=== PATIENT | female | born 1955 | race Caucasian/White ===

== ENCOUNTER 2017-08-29 09:13 | Emergency (ER) | payer BC ==
--- NOTE | 2017-08-29 10:57 | ED ---
Back Pain - HPI Summary HPI Summary: Patient presents with left hip pain that started yesterday. She reports she was using her left inner leg/calf area to repeatedly catch an automatic closing door from closing multiple times. No acute pain with these motions however after she went to sit down she noticed soreness in her hip which was worse with standing after sitting for period of time. She reports she then had pain with walking and weightbearing but this did improve after walking around for a bit. She also took 400 mg of Advil which also helped. She is here today as she is concerned that the pain returned again this morning upon waking and she felt very sore and stiff getting out of bed. Pain in the left hip area radiates into the buttock hamstring and sometimes calf. She denies numbness, tingling or weakness. No previous injury to this hip however she admits she hurt her back last week. [place] pain in her left SI joint when she was bending and lifting using her back and said of her legs. She reports she nursed this along and felt great yesterday. She no longer has tenderness over her SI joint as well. She is an active lady who rides horses for hobby. Additionally she has a history of appendix and colon cancer that were treated via resection as well as chemotherapy therapy. She denies any known history of osteoporosis/penia or lytic lesions of her bone(s). No previous left hip issues to report. Denies recent use of anbx, steroids, statins. - History of Current Complaint Chief Complaint: EDExtremityLower Stated Complaint: LT HIP PAIN Time Seen by Provider: 08/29/17 10:08 Hx Obtained From: Patient, Family/Family Day Care Provider - is present w/ her today Pain Intensity: 7 - Allergies/Home Medications Allergies/Adverse Reactions: Allergies Allergy/AdvReac Type Severity Reaction Status Date / Time caffeine Allergy Tachycardia Verified 08/29/17 09:23 ciprofloxacin Allergy Numbness Verified 08/29/17 09:23 And Tingling epinephrine Allergy Tachycardia Verified 08/29/17 09:23 Sulfa (Sulfonamide Allergy Rash Verified 08/29/17 09:23 Antibiotics) ENVIRONMENT Allergy CONGESTED Uncoded 07/28/16 07:50 vasoconstrictors AdvReac Tachycardia Uncoded 07/28/16 07:50 PMH/Surg Hx/FS Hx/Imm Hx Previously Healthy: Yes Endocrine/Hematology History: Denies: Hx Anticoagulant Therapy, Hx Blood Disorders, Hx Bone Marrow Disease , Hx Diabetes, Hx Systemic Lupus Erythematosus, Hx Thyroid Disease, Hx Anemia, Autoimmune Disease Cardiovascular History: Reports: Other Cardiovascular Problems/Disorders - TACHYCARDIA Denies: Hx Hypertension Respiratory History: Reports: Hx Sleep Apnea - AFTER SURGERY IN THE PAST, NO FOLLOW UP Denies: Hx Asthma, Hx Chronic Obstructive Pulmonary Disease (COPD) GI History: Reports: Hx Gastroesophageal Reflux Disease - OCCASIONAL ACID REFLUX FROM SPICY FOODS, Hx Irritable Bowel - TENDS TO GET DIARRHEA EASILY SINCE SURGERY, Other GI Disorders - HX OF COLON CANCER X 2 WITH 2 BOWEL RESECTIONS Denies: Hx Jaundice, Hx Ulcer History: Denies: Hx Dialysis, Hx Renal Disease Musculoskeletal History: Denies: Hx Rheumatoid Arthritis Sensory History: Reports: Hx Contacts or Glasses Denies: Hx Hearing Aid Opthamlomology History: Reports: Hx Contacts or Glasses Neurological History: Reports: Hx Migraine - MIGRAINES WITH AURA-SPARKLES BEFORE EYES, Other Neuro Impairments/Disorders - PERIPHERAL NEUROPATHIES Psychiatric History: Reports: Hx Anxiety - HX OF - Cancer History Cancer Type, Location and Year: possible thyroid. appendacyle. colon Hx Chemotherapy: Yes - LAST DOSE 2010 Hx Radiation Therapy: Yes - Abdomen x 2 - Surgical History Surgery Procedure, Year, and Place: 1989 ,[facility] [place]. colon resection 2007 & 2009,. 2008 & 2010power port placement x 2,. fibroid adenoma Breast 1979, [facility]. 1985 lIpoma REMOVED FROM RIGHT leg, [facility] [place]. partial thyroidectomy Hx Anesthesia Reactions: Yes - SLEEP APNEA WITH 2009 SURGERY, HARD TO WAKE AFTER SURGERY Infectious Disease History: No Infectious Disease History: Denies: Hx Clostridium Difficile, Hx Hepatitis, Hx Human Immunodeficiency Virus (HIV), Hx of Known/Suspected MRSA, Hx Shingles, Hx Tuberculosis, Hx Known/ Suspected VRE, Hx Known/Suspected VRSA, History Other Infectious Disease, Traveled Outside the [place] in Last 30 Days - Social History Occupation: Employed Full-time - director packaging Lives: With Family Alcohol Use: Occasionally Hx Substance Use: No Substance Use Type: Reports: None Hx Tobacco Use: No Smoking Status (MU): Never Smoked Tobacco Review of Systems Constitutional: Negative Negative: Fever, Chills, Fatigue Negative: Chest Pain Negative: Shortness Of Breath Gastrointestinal: Negative Negative: Abdominal Pain Genitourinary: Negative Negative: incontinence Positive: Arthralgia, Myalgia. Negative: Decreased ROM, Edema Skin: Negative Neurological: Other - no change from baseline neuropathies Psychological: Normal All Other Systems Reviewed And Are Negative: Yes Physical Exam Triage Information Reviewed: Yes Vital Signs On Initial Exam: Initial Vitals Temp Pulse Resp BP Pulse Ox 98.0 F 78 16 132/72 99 08/29/17 09:17 08/29/17 09:17 08/29/17 09:17 08/29/17 09:17 08/29/17 09:17 Vital Signs Reviewed: Yes Appearance: Positive: Well-Appearing, No Pain Distress - at rest, seated in pike position on stretcher, Well-Nourished Skin: Positive: Warm, Skin Color Reflects Adequate Perfusion, Dry - no erythema , no ecchymosis, no lesions over effected area Head/Face: Positive: Normal Head/Face Inspection Eyes: Positive: EOMI ENT: Positive: Hearing grossly normal Respiratory/Lung Sounds: Positive: Breath Sounds Present Cardiovascular: Positive: Pulses are Symmetrical in both Upper and Lower Extremities. Negative: Leg Edema Left - (-) Shaun's, Leg Edema Right Abdomen Description: Positive: Nontender, Soft Musculoskeletal: Positive: Strength/ROM Intact - adduction and abduction of hip while lying are non-painful (pt reports no pain/improved pain w/ abduction); (+ ) pain w/ hip flexion lying; pain in buttocks all directions w/ standing; (-) grind test of hip joint, Pain @, Other - SI joint, spinous pp and paraspinal mm are NTTP Neurological: Positive: Normal, Sensory/Motor Intact, Alert, Oriented to Person Place, Time, CN Intact II-III Psychiatric: Positive: Normal Diagnostics - Vital Signs Vital Signs Temp Pulse Resp BP Pulse Ox 08/29/17 09:17 98.0 F 78 16 132/72 99 - Laboratory Lab Statement: Any lab studies that have been ordered have been reviewed, and results considered in the medical decision making process. Back Pain Course/Dx - Course Course Of Treatment: Pt presents w/ gradual onset Lt hip soreness after new Lt LE movments/activity early in the day. She reports soreness/stiffness that are worse with weight bearing and movement initially after resting but better with movement over time. XR's reveals arthritis of her lumbar spine and hip joint. This could be an arthritic exacerbation and/or muscle strain. No fx, dislocation or lytic lesions observed. - Diagnoses Provider Diagnoses: Strain of left hip, Hip arthritis, Degenerative disc disease, lumbar Discharge - Sign-Out/Discharge Documenting (check all that apply): Discharge/Admit/Transfer - Discharge Plan Condition: Stable Disposition: HOME Patient Education Materials: Muscle Strain (ED), Osteoarthritis (ED), Degenerative Disc Disease (ED) Referrals: Annie Alvares MD [Primary Care Provider] - Additional Instructions: Apply heat followed by gentle stretches to increase blood flow and reduce stiffness/soreness. Apply ice after activities. You may continue ibuprofen 600 mg every 6 hours with food as needed for pain. If you continue to have pain with weightbearing, use crutches to avoid weightbearing. Continue gentle range of motion exercises. If pain persists beyond 1-2 weeks or worsens, follow up with PCP as you may benefit from further assessment, treatment and/or testing. *If you develop numbness of your inner thighs or labia, change in bowel or bladder habits, worsening of neuropathy or weakness in your lower extremities, return to the emergency department. - Billing Disposition and Condition Condition: STABLE Disposition: Home
--- NOTE | 2017-08-29 11:13 | RAD ---
INDICATION: Left hip pain. COMPARISON: Correlation is made with a prior CT of the abdomen and pelvis from July 28, 2016. TECHNIQUE: An AP view of the pelvis and frontal and lateral views of the left hip were obtained. FINDINGS: The bones are in normal alignment. No significant focal osseous abnormality or fracture is seen. There is mild bilateral osteoarthritic changes in the hips. Surgical sutures are noted in the right lower quadrant and within the pelvis overlying the midline. IMPRESSION: MILD OSTEOARTHRITIC CHANGE, NO EVIDENCE FOR FRACTURE.
--- NOTE | 2017-08-29 11:15 | RAD ---
INDICATION: Left lower extremity radiculopathy. TECHNIQUE: 3 views of the lumbar spine were obtained including lateral, AP and a coned-down lateral view of the lumbar sacral junction. FINDINGS: The vertebra are in normal alignment. No fracture is seen. There is mild to moderate degenerative disc disease at the L3-L4 level. IMPRESSION: DEGENERATIVE DISC DISEASE AT THE L3-L4
[2017-08-29 11:32] VITALS: BP 126/82
== END 2017-08-29 11:31 | disposition home or self-care (01) ==
LOC: ED 09:13
DX: S76.012A Strain of muscle, fascia and tendon of left hip, initial encounter (principal); M51.36 Other intervertebral disc degeneration, lumbar region; W23.0XXA Caught, crushed, jammed, or pinched between moving objects, initial encounter; Y92.9 Unspecified place or not applicable; M16.10 Unilateral primary osteoarthritis, unspecified hip; Z86.79 Personal history of other diseases of the circulatory system
CPT/HCPCS: 72100; 99282